=== PATIENT | female | born 1985 | race Caucasian/White ===

== ENCOUNTER 2018-04-26 13:26 | Inpatient (IN) | payer OTHER ==
[~2018-04-26] VITALS: Ht 175.3 cm; Wt 83.9 kg
[2018-04-26] MEDS ORDERED: OXYTOCIN/0.9 % SODIUM CHLORIDE 1,000 ML IV SCH (14:04)
[2018-04-26] MEDS ORDERED: LR 1,000 ML IV SCH (14:04)
[2018-04-26] MEDS ORDERED: LR 1,000 ML IV ONE (14:04)
[2018-04-26] MEDS ORDERED: TERBUTALINE SULFATE 1 MG/ML VIAL SUBCUT ONE (14:15)
[2018-04-26] MEDS ORDERED: NALBUPHINE HCL 10 MG/ML AMP IVP PRN (14:15)
[2018-04-26 14:48] LABS: HEMATOCRIT 38.7 % (36-48); HEMOGLOBIN 12.6 g/dL (12.0-16.0); MEAN CORPUSCULAR HEMOGLOBIN 30 pg (27-31); MEAN CORPUSCULAR HGB CONC 33 % (32-36); MEAN CORPUSCULAR VOLUME 92 fL (79.0-98.0); PLATELET COUNT (AUTO) 291 K/uL (130-430); RED BLOOD CELL COUNT(AUTO) 4.22 MIL/uL (4.2-6.2); RED CELL DISTRIBUTION WIDTH 14.6 % (9.0-15.0); WHITE BLOOD COUNT (AUTO) 8.2 K/uL (4.8-10.8)
[2018-04-26 15:07] LABS: BAND % (MANUAL) 3 % (0-6); BASOPHILS % (MANUAL) 0 % (0-2); EOSINOPHILS % (MANUAL) 0 % (0-7); LYMPHOCYTES % (MANUAL) 8 % (20-46); MONOCYTES % (MANUAL) 7 % (0-11)
[2018-04-26 16:04] VITALS: BP_SYST 121
[2018-04-26] MEDS ORDERED: ROPIVACAINE 0.2% 100 ML ONE (20:18)
[2018-04-26] MEDS ORDERED: fentaNYL CITRATE/PF 100 MCG/2 ML AMP ONE (20:18)
[2018-04-27] MEDS ORDERED: OXYTOCIN/0.9 % SODIUM CHLORIDE 1,000 ML IV ONE (03:07)
[2018-04-27] MEDS ORDERED: OXYTOCIN/0.9 % SODIUM CHLORIDE 1,000 ML IV SCH (03:07)
[2018-04-27] MEDS ORDERED: RHO(D) IMMUNE GLOBULIN/MALTOSE 1500 UNITS/1.3 ML (WINHRO) IM PRN (03:15)
[2018-04-27] MEDS ORDERED: MEASLES,MUMPS&RUBELLA VACC/PF 12500 UNIT/0.5 ML VIAL SUBQ PRN (03:15)
[2018-04-27] MEDS ORDERED: LANOLIN 7 GM OINT. TP PRN (03:15)
[2018-04-27] MEDS ORDERED: HYDROcodone/ACETAMIN 5-325 MG TAB (NORCO/ VICODIN) PO PRN (03:15)
[2018-04-27] MEDS ORDERED: ANUSOL 1 EA SUPP.RECT (PREPARATION H) RC PRN (03:15)
[2018-04-27] MEDS ORDERED: CALCIUM GLUCONATE 1 GM/10 ML VIAL IVP ONE (03:15)
[2018-04-27] MEDS ORDERED: DIPH-TET-PERTUS Vaccine 0.5 ML VIAL (ADACEL) I.M. PRN (03:15)
[2018-04-27] MEDS ORDERED: DERMOPLAST SPRAY TP PRN (03:15)
[2018-04-27] MEDS ORDERED: WITCH HAZEL LEAF 1 MED.PAD MED.PAD TP PRN (03:15)
[2018-04-27] MEDS ORDERED: HYDROCORTISONE 0.5%, 28.35 GM TOPICAL CREAM TP PRN (03:15)
[2018-04-27] MEDS ORDERED: OXYCODONE/ACETAMINOPHEN 5-325 TABLET PO PRN ×2 (03:15)
[2018-04-27] MEDS ORDERED: CALCIUM GLUCONATE 1 GM/10 ML VIAL ONE (03:20)
[2018-04-27] MEDS ORDERED: FENT2mCg/mL-ROPIVA0.2%/NS EPID 150 ML EP SCH (08:15)
[2018-04-27] MEDS ORDERED: LR 500 ML IV ONE (08:15)
[2018-04-27] MEDS ORDERED: ePHEDrine sulfate 50 MG/ML VIAL IVP ONE (16:57)
[2018-04-27] MEDS ORDERED: TEMAZEPAM 15 MG CAPSULE PO PRN (21:00)
[2018-04-27] MEDS: IBUPROFEN 600 MG TABLET PO SCH (23:50)
[2018-04-28] MEDS: IBUPROFEN 600 MG TABLET PO SCH ×2 (06:00→12:22)
[2018-04-28 08:40] LABS: HEMATOCRIT 34.5 % (36-48); HEMOGLOBIN 11.3 g/dL (12.0-16.0); MEAN CORPUSCULAR HEMOGLOBIN 30 pg (27-31); MEAN CORPUSCULAR HGB CONC 33 % (32-36); MEAN CORPUSCULAR VOLUME 93 fL (79.0-98.0); PLATELET COUNT (AUTO) 262 K/uL (130-430); RED BLOOD CELL COUNT(AUTO) 3.72 MIL/uL (4.2-6.2); RED CELL DISTRIBUTION WIDTH 14.5 % (9.0-15.0); WHITE BLOOD COUNT (AUTO) 12.3 K/uL (4.8-10.8)
[2018-04-28 12:46] LABS: BAND % (MANUAL) 0 % (0-6); BASOPHILS % (MANUAL) 0 % (0-2); EOSINOPHILS % (MANUAL) 2 % (0-7); LYMPHOCYTES % (MANUAL) 27 % (20-46); MONOCYTES % (MANUAL) 5 % (0-11)
== END 2018-04-28 16:34 | disposition home or self-care (01) | DRG 775 ==
LOC: SPU 13:26 → SMU 04-27 10:22 → SPU 04-27 22:49
PROVIDERS: ADMIT Specialist; ATTEND Specialist
PROC: 10E0XZZ Delivery of Products of Conception, External Approach (ICD-10-PCS; principal; 2018-04-26)
PROC: 00HU33Z Insertion of Infusion Device into Spinal Canal, Percutaneous Approach (ICD-10-PCS; 2018-04-26)
PROC: 3E0R3BZ Introduction of Anesthetic Agent into Spinal Canal, Percutaneous Approach (ICD-10-PCS; 2018-04-26)
PROC: 0HQ9XZZ Repair Perineum Skin, External Approach (ICD-10-PCS; 2018-04-26)
DX: O42.02 Full-term premature rupture of membranes, onset of labor within 24 hours of rupture (principal); Z37.0 Single live birth; Z3A.38 38 weeks gestation of pregnancy; O70.0 First degree perineal laceration during delivery
CPT/HCPCS: 36415; 85007; 85027; 86592; 86886; 86900; 86901; 94760; J0610; J2300; J2590; J2795; J3010